=== PATIENT | male | born 1930 | race Native Hawaiian/Other Pacific Islander ===

== ENCOUNTER 2016-07-10 13:08 | Inpatient (IN) | payer MEDICARE, MEDICAID ==
[2016-07-10 13:09] VITALS: BMI 21.2
--- NOTE | 2016-07-10 14:45 | ED PDOC ---
HPI: Altered Mental Status Time Seen by Provider: 07/10/16 13:33 Chief Complaint (Nursing): Altered Mental Status Chief Complaint (Provider): Altered Mental Status History Per: Patient History/Exam Limitations: None Onset/Duration Of Symptoms: Days Current Symptoms Are (Timing): Still Present Additional Complaint(s): 86 y/o male presents to the emergency department accompanied by and nephew with a complaint of increasing anxiety and depression which had been progressing over the last 4 months. Associated with feeling nervous, agitated, and confusion. Patient was told by PCP to visit the ER to get admitted to [facility] with a psychiatric evaluation. As per history from family, patient was seen at [facility] last month for the same complaints and was there for a total of 4 months. Denies fever, headache or fall. Past Medical History Reviewed: Historical Data, Nursing Documentation, Vital Signs Vital Signs: Last Vital Signs Temp 98.1 F 07/10/16 13:13 Pulse 67 07/10/16 13:13 Resp 16 07/10/16 13:13 BP 146/86 07/10/16 13:13 Pulse Ox 98 07/10/16 13:13 - Medical History PMH: Depression, HTN Denies: Chronic Kidney Disease - Surgical History Surgical History: Coronary Stent, Hernia Repair - Family History Family History: States: Unknown Family Hx - Social History Current smoker - smoking cessation education provided: No Ex-Smoker (has not smoked in the last 12 months): Yes Alcohol: None Drugs: Denies - Immunization History Hx Tetanus Toxoid Vaccination: No Hx Influenza Vaccination: Yes Hx Pneumococcal Vaccination: Yes - Home Medications Home Medications: Ambulatory Orders Medication Instructions Recorded Aspirin [Ecotrin] 81 mg PO DAILY 04/07/15 Metoprolol Tartrate 25 mg PO BID 04/07/15 Tamsulosin [Flomax] 0.4 mg PO DAILY 04/07/15 hydrALAZINE [Apresoline] 50 mg PO BID 04/07/15 Esomeprazole Magnesium [Nexium] 40 mg PO DAILY 12/13/15 Atorvastatin [Lipitor] 40 mg PO DAILY 07/10/16 Clopidogrel [Plavix] 75 mg PO DAILY 07/10/16 QUEtiapine [SEROquel] 25 mg PO DIN 07/10/16 Quetiapine Fumarate [Seroquel] 50 mg PO HS 07/10/16 Sodium Chloride [Sodium Chloride 1 gm PO TID 07/10/16 Tab] Zolpidem [Ambien] 5 mg PO HS 07/10/16 - Allergies Allergies/Adverse Reactions: Allergies Allergy/AdvReac Type Severity Reaction Status Date / Time No Known Allergies Allergy Verified 07/10/16 20:14 Review of Systems ROS Statement: Except As Marked, All Systems Reviewed And Found Negative Constitutional: Negative for: Fever, Other (No falls) Neurological: Negative for: Headache Psych: Positive for: Anxiety, Depression, Other (Confused) Physical Exam - Reviewed Nursing Documentation Reviewed: Yes Vital Signs Reviewed: Yes - Physical Exam Appears: Positive for: Non-toxic, No Acute Distress Head Exam: Positive for: ATRAUMATIC, NORMOCEPHALIC ENT: Positive for: Other (Hearing aids bilaterally) Neurologic/Psych: Positive for: Alert, Oriented (x3), Mood/Affect (Confused and anxious) - Laboratory Results Result Diagrams: 07/10/16 14:46 07/10/16 14:46 - ECG O2 Sat by Pulse Oximetry: 98 (RA) Pulse Ox Interpretation: Normal Medical Decision Making Medical Decision Making: Time: 13:33 Initial impression: Anxiety and depression Initial plan: --Head w/o contrast (CT) --Electrocardiogram Stat --Acetaminophen Stat --Alcohol Serum Stat --COMP Metabolic Panel --Drug Screen, Urine Stat --Salicylate Stat --Crisis Evaluation as Ordered --EKG-ED (EDNURTX) Stat --CBC w/ differential --Chest One View (RAD) Stat --Urinalysis Stat --Revaluation Time: 1500 Patient signed out to Dr. Fried pending medical clearance for crisis eval Scribe Attestation: Documented by Ami Alcaraz, acting as a scribe for Garcia Marvin MD. Provider Scribe Attestation: All medical record entries made by the Scribe were at my direction and personally dictated by me. I have reviewed the chart and agree that the record accurately reflects my personal performance of the history, physical exam, medical decision making, and the department course for this patient. I have also personally directed, reviewed, and agree with the discharge instructions and disposition. Disposition - Clinical Impression Clinical Impression: Depression - Patient ED Disposition Is Patient to be Admitted: Transfer of Care - Disposition Disposition: Transfer of Care Disposition Time: 15:00 Condition: STABLE Patient Signed Over To: Ernestina Fried
[2016-07-10 14:55] LABS: BASO # 0.1 K/uL (0.0-0.2); BASO % 1.3 % (0.0-2.0); EOS # 0.2 K/uL (0.0-0.7); EOS % 2.4 % (0.0-4.0); HEMATOCRIT 44.7 % (35.0-51.0); LYMPH # 0.6 K/uL (1.0-4.3); LYMPH % 6.1 % (20.0-40.0); MEAN CELL VOLUME 74.4 fl (80.0-94.0); MEAN CORPUSCULAR HEMOGLOBIN 24.1 pg (27.0-31.0); MEAN CORPUSCULAR HGB CONC 32.4 g/dL (33.0-37.0); MEAN PLATELET VOLUME 7.5 fl (7.2-11.7); MONO # 0.3 K/uL (0.0-0.8); NEUT # 8.8 K/uL (1.8-7.0); NEUT % 87.2 % (50.0-75.0); NRBC % 0.1 % (0.0-0.0); PLATELET COUNT 612 K/uL (130-400); RED CELL DISTRIBUTION WIDTH 16.3 % (11.5-14.5); WHITE BLOOD COUNT 10.1 K/uL (4.8-10.8)
--- NOTE | 2016-07-10 15:13 | CT ---
PROCEDURE: CT HEAD WITHOUT CONTRAST. HISTORY: geropsych COMPARISON: None available. TECHNIQUE: Axial computed tomography images were obtained through the head/brain without intravenous contrast. Radiation dose: Total exam DLP = 1889.36 mGy-cm. This CT exam was performed using one or more of the following dose reduction techniques: Automated exposure control, adjustment of the mA and/or kV according to patient size, and/or use of iterative reconstruction technique. FINDINGS: HEMORRHAGE: No intracranial hemorrhage. BRAIN: Diffuse atrophy with prominence of the ventricles and sulci noted. No mass effect or edema. Intracranial atherosclerotic calcifications. Mild scattered white matter hypodensities, which are nonspecific, but often seen with chronic microvascular ischemic disease. Please note that MRI with diffusion imaging is more sensitive in the detection of acute ischemic event. VENTRICLES: No hydrocephalus. CALVARIUM: Unremarkable. PARANASAL SINUSES: Unremarkable as visualized. No significant inflammatory changes. MASTOID AIR CELLS: Under aeration of the mastoid air cells. OTHER FINDINGS: None. IMPRESSION: Generalized atrophy. Nonspecific white matter changes. Under aeration of the mastoid air cells; correlate clinically for history of mastoiditis.
[2016-07-10 15:21] LABS: ALB/GLOB RATIO 1.7 (1.0-2.1); ALCOHOL SERUM < 10 mg/dl (0-10); ALKALINE PHOSPHATASE 84 U/L (38-126); ALT/SGPT 37 U/L (21-72); AST/SGOT 87 U/L (17-59); BLOOD UREA NITROGEN 16 mg/dl (9-20); CALCIUM 9.6 mg/dL (8.4-10.2); CARBON DIOXIDE 25 mmol/L (22-30); CHLORIDE 96 mmol/L (98-107); GFR AFRICAN-AMERICAN > 60; GLUCOSE,RANDOM 77 mg/dL (75-110); POTASSIUM 5.2 MMOL/L (3.6-5.0); SODIUM 132 mmol/l (132-148); TOTAL PROTEIN 7.6 G/DL (6.3-8.2)
--- NOTE | 2016-07-10 15:45 | RAD ---
HISTORY: psych COMPARISON: None available TECHNIQUE: Chest, one view. FINDINGS: LUNGS: No focal consolidation. Please note that chest x-ray has limited sensitivity for the detection of pulmonary masses. PLEURA: No significant pleural effusion identified. No definite pneumothorax . CARDIOVASCULAR: Cardiomegaly. Aortic stent. Dense atherosclerotic calcification of the aorta. OSSEOUS STRUCTURES: Mild degenerative changes. VISUALIZED UPPER ABDOMEN: Unremarkable. OTHER FINDINGS: None. IMPRESSION: Cardiomegaly.
--- NOTE | 2016-07-10 15:45 | ED PDOC ---
- Laboratory Results Result Diagrams: 07/10/16 14:46 07/10/16 14:46 - ECG ECG: Positive for: Interpreted By Me ECG Rhythm: Positive for: Normal QRS, Sinus Rhythm, ST/T Changes (lateral T wave inversions) O2 Sat by Pulse Oximetry: 98 (RA) Pulse Ox Interpretation: Normal - Progress ED Course And Treament: 3p Rec'd endorsement from Dr Marvin. Pt with increasing confusion and aggression. H/o inpatient psych admission at [facility]. Pending medical clearance. Accession No. : [id number] Patient Name / ID : RAY ZELAYA / [id number] Exam Date : 07/10/2016 14:48:45 ( Approved ) Study Comment : Sex / Age : M / 86Y Creator : Elissa Obregon MD Dictator : Elissa Obregon MD Improvement Auditor : Brineyard Supervisor : Elissa Obregon MD Approver2 : Report Date : 07/10/2016 15:11:01 My Comment : PROCEDURE: CT HEAD WITHOUT CONTRAST. HISTORY: geropsych COMPARISON: None available. TECHNIQUE: Axial computed tomography images were obtained through the head/brain without intravenous contrast. Radiation dose: Total exam DLP = 1889.36 mGy-cm. This CT exam was performed using one or more of the following dose reduction techniques: Automated exposure control, adjustment of the mA and/or kV according to patient size, and/or use of iterative reconstruction technique. FINDINGS: HEMORRHAGE: No intracranial hemorrhage. BRAIN: Diffuse atrophy with prominence of the ventricles and sulci noted. No mass effect or edema. Intracranial atherosclerotic calcifications. Mild scattered white matter hypodensities, which are nonspecific, but often seen with chronic microvascular ischemic disease. Please note that MRI with diffusion imaging is more sensitive in the detection of acute ischemic event. VENTRICLES: No hydrocephalus. CALVARIUM: Unremarkable. PARANASAL SINUSES: Unremarkable as visualized. No significant inflammatory changes. MASTOID AIR CELLS: Under aeration of the mastoid air cells. OTHER FINDINGS: None. IMPRESSION: Generalized atrophy. Nonspecific white matter changes. Under aeration of the mastoid air cells; correlate clinically for history of mastoiditis. Pt medically stable for psychiatric admission. CW evaluated pt and to be admitted to [facility]. Disposition - Clinical Impression Clinical Impression: Depression - POA Present On Arrival: None - Disposition Disposition: Admitted as In-Patient Disposition Time: 17:00 Condition: STABLE
[2016-07-10 15:57] LABS: BASOPHIL 2 % (0-2); NEUTROPHIL 87 % (42-75); TOTAL CELLS COUNTED 100
[2016-07-10 15:58] LABS: LARGE PLATELETS PRESENT
[2016-07-10] MEDS ORDERED: Alum-Mag Hydrox-Simethicone Susp (30 mL) PO PRN (20:47)
[2016-07-10] MEDS ORDERED: Magnesium Hydroxide Susp 30 ml UD PO PRN (20:47)
[2016-07-10] MEDS ORDERED: Bismuth Subsalicylate 262 mg/15 ml Sus (240 ml) PO PRN (20:47)
[2016-07-10] MEDS ORDERED: Sod Polystyrene Sulf 15 gm/60 ml Oral Susp PO ONE (21:43)
--- NOTE | 2016-07-10 21:45 | CP.PCM.CON ---
History of Present Illness - History of Present Illness History of Present Illness: CC: PER HOSPITAL PROTOCOL HPI: 84M PMH CAD with PCI, Severe s/p TAVR, HTN, HLD, OA, BPH with hx prostate sx admitted to [facility] for increasing confusion and agitation. Patient was brought in by and son, per records. Patient is a poor historian , history mostly obtained from chart review. Patient has had prior psych admission to [facility] and was admitted for appx 4 months. No other complaints at this time, no acute distress. Vitals are stable. ROS: per HPI, all other systems reviewed and neg by in PMSH: CAD with PCI, Severe s/p TAVR, HTN, HLD, OA, BPH with hx prostate sx Family Hx: denies Social Hx: Patient denies any alcohol or smoking, lives with Allergy no known drug allergy Temp Pulse Resp BP Pulse Ox 98.1 F 67 20 146/86 98 07/10/16 13:13 07/10/16 13:13 07/10/16 21:03 07/10/16 13:13 07/10/16 18:26 GEN: awake, alert HEENT NCAT PERRL, neck supple Heart: RRR S1S2 Lung: CTAB, no wheezing or rales noted Abdomen soft and no organomegaly, No mass appreciated Extremities no pedal edema, no leg swelling, pedal pulses are good. [employer] alert awake oriented x3 no functional neurological deficit Skin warm dry Psych confused 07/10/16 14:46 07/10/16 14:46 Active Medications Acetaminophen [Tylenol 325mg tab] 650 mg PO Q4 PRN Aluminum Hydroxide/Magnesium [Maalox Plus 30 ml] 30 ml PO Q4 PRN Bismuth Subsalicylate [Pepto-Bismol] 524 mg PO Q4 PRN LORazepam [Ativan] 0.5 mg PO HS PRN LORazepam [Ativan] 0.5 mg PO Q6 PRN Magnesium Hydroxide [Milk Of Magnesia] 30 ml PO HS PRN QUEtiapine [SEROquel] 50 mg PO HS Aspirin [Ecotrin] 81 mg PO DAILY Atorvastatin [Lipitor] 40 mg PO DAILY Clopidogrel [Plavix] 75 mg PO DAILY Metoprolol Tartrate [Lopressor] 25 mg PO BID Tamsulosin [Flomax] 0.4 mg PO DAILY hydrALAZINE [Apresoline] 50 mg PO BID QUEtiapine [SEROquel] 25 mg PO DIN Assessment/Plan: 84M PMH CAD with PCI, Severe s/p TAVR, HTN, HLD, OA, BPH with hx prostate sx admitted to [facility] for increasing confusion and agitation. Patient was brought in by and son, per records. Patient is a poor historian, history mostly obtained from chart review. Patient has had prior psych admission to [facility] and was admitted for appx 4 months. No other complaints at this time, no acute distress. Vitals are stable. Severe , CAD with PCI, HTN, HLD cont ASA, Plavix, Lopressor, statin BPH cont flomax Agitation per psychiatric team Past Patient History - Past Medical History & Family History Past Medical History?: Yes - Past Social History Alcohol: None Drugs: Denies - CARDIAC Hx Cardiac Disorders: No Hx Hypertension: Yes - PULMONARY Hx Tuberculosis: No - NEUROLOGICAL HX Cerebrovascular Accident: No Hx Seizures: No - HEENT Other/Comment: [place] (Bilateral) - RENAL Hx Chronic Kidney Disease: No - ENDOCRINE/METABOLIC Hx Endocrine Disorders: No - HEMATOLOGICAL/ONCOLOGICAL Hx Cancer: No Hx Human Immunodeficiency Virus (HIV): No - INTEGUMENTARY Hx Dermatological Problems: No - MUSCULOSKELETAL/RHEUMATOLOGICAL Hx Falls: Yes Hx Unsteady Gait: Yes (post surgery of aortic valve, with use of cane) - GASTROINTESTINAL Hx Constipation: Yes Hx Diarrhea: Yes Other/Comment: abdominal hernia - GENITOURINARY/GYNECOLOGICAL Hx Sexually Transmitted Disorders: No - PSYCHIATRIC Hx Anxiety: Yes Hx Depression: Yes - SURGICAL HISTORY Hx Coronary Stent: Yes Hx Valve Replacement: Yes - ANESTHESIA Hx Anesthesia: Yes Hx Anesthesia Reactions: No Hx Malignant Hyperthermia: No Meds Allergies/Adverse Reactions: Allergies Allergy/AdvReac Type Severity Reaction Status Date / Time No Known Allergies Allergy Verified 07/10/16 20:14 - Medications Medications: Current Medications Acetaminophen (Tylenol 325mg Tab) 650 mg PO Q4 PRN PRN Reason: Pain, moderate (4-7) Al Hydrox/Mg Hydrox/Simethicone (Maalox Plus 30 Ml) 30 ml PO Q4 PRN PRN Reason: Dyspepsia Aspirin (Ecotrin) 81 mg PO DAILY [facility] Atorvastatin Calcium (Lipitor) 40 mg PO ONCE ONE Stop: 07/11/16 21:31 Atorvastatin Calcium (Lipitor) 40 mg PO DAILY [facility] Bismuth Subsalicylate (Pepto-Bismol) 524 mg PO Q4 PRN PRN Reason: Diarrhea Clopidogrel Bisulfate (Plavix) 75 mg PO DAILY [facility] Hydralazine HCl (Apresoline) 50 mg PO BID [facility] Lorazepam (Ativan) 0.5 mg PO HS PRN PRN Reason: Insomnia Stop: 07/24/16 20:48 Lorazepam (Ativan) 0.5 mg PO Q6 PRN PRN Reason: Anixety/Agitation Stop: 07/24/16 20:48 Magnesium Hydroxide (Milk Of Magnesia) 30 ml PO HS PRN PRN Reason: Constipation Metoprolol Tartrate (Lopressor) 25 mg PO BID [facility] Quetiapine Fumarate (Seroquel) 25 mg PO DIN [facility] Quetiapine Fumarate (Seroquel) 50 mg PO HS [facility] Sodium Polystyrene Sulfonate (Kayexalate Oral Susp) 30 gm PO ONCE ONE Stop: 07/10/16 21:44 Tamsulosin HCl (Flomax) 0.4 mg PO ONCE ONE Stop: 07/11/16 21:31 Tamsulosin HCl (Flomax) 0.4 mg PO DAILY [facility] Results - Vital Signs Recent Vital Signs: Last Vital Signs Temp 98.1 F 07/10/16 13:13 Pulse 67 07/10/16 13:13 Resp 20 07/10/16 21:03 BP 146/86 07/10/16 13:13 Pulse Ox 98 07/10/16 18:26 - Labs Result Diagrams: 07/10/16 14:46 07/10/16 14:46
[2016-07-11 06:20] LABS: RBC URINE 1 /hpf (0-3); URINE BILIRUBIN NEGATIVE (NEGATIVE); URINE BLOOD NEGATIVE (NEGATIVE); URINE COLOR YELLOW (YELLOW); URINE GLUCOSE (UA) NEG (Normal); URINE KETONE NEGATIVE (NEGATIVE); URINE LEUKOCYTE ESTERASE SMALL Leu/uL (Negative); URINE PROTEIN 100 mg/dL (NEGATIVE); URINE UROBILINOGEN 0.2-1.0 mg/dL (0.2-1.0); WBC URINE 11 /hpf (0-5)
[2016-07-11 07:49] LABS: CHOLESTEROL 129 mg/dL (0-199)
[2016-07-11 08:04] LABS: T4 9.74 ug/dl (5.5-11.0)
[2016-07-11 08:18] LABS: THYROID STIMULATING HORMONE 2.46 mIU/ML (0.46-4.68)
--- NOTE | 2016-07-11 08:33 | PCM.PSYCH ---
Initial Psychiatric Evaluation - Initial Psychiatric Evaluation Type of Admission: Voluntary Legal Status: Capacity Chief Complaint (in patient's own words): "I don't sleep well." Patient's Reaction to Hospitalization: 86 year old male brought to this ED by his family. Patient believe he is having a "nervous breakdown" stating that he feels sad, but denied feeling "depressed." (He did not seem to identify with the specific word, depression). +Intermittent feelings of anxiety. Pt reports he has "insomnia" and despite many medications, nothing is working for him. Pt reports that he feels that his legs don't work and he feels numbness. Pt states that as a child in school, he overworked his brain and developed insomnia. Pt is tangential and requires frequent redirection. He will not elaborate on responses in regards to questions asked by this junior underwriter but he continues to speak about the insomnia. Pt is oriented x3. Pt denies suicial/homicidal ideations. Pt denies a/v/h. Collateral obtained by home support worker: As per Pts nephew Sarina Markham, , approximately 4 months ago Pt began reporting insomnia, pain and numbness. They took Pt to [facility] where he stayed one day for observation and was d /c with Trazadone. He reports that 3-4 days after taking Trazadone, Pt became forgetful. They took him back to [facility] where Pt was told he had low sodium and stated that it could have been contributing to his forgetfulness. Pt was then linked to Dr. Browne which discontinued Trazadone and put him on Remeron 30mg and Xanax 2mg. As per nephew, Pt continued to complain about insomnia and his nurse practitioner discontinued his medication and started him on Seroquel 75mg (25mg in the AM and 50mg in the PM) and Ambien. Pts daughter Nkiki Markham stated that Pt has been "rambling" all day and becomes agitated at times and started yelling. She would like for him to be admitted to be stabilized and receive a full evaluation. She reports [facility] told her it may be Dementia but she is unsure of this dx and would like a confirmation. She reports his psychiatrist dx him with Depression and Anxiety. PPHx: Pt has been to [facility], however, he only stayed one day. Pt was treated by Dr. Browne and now he is unsure of his new psychiatrist. Pt is dx with Depression and Anxiety. Currently on Seroquel 75mg and Ambien. PMHx: CAD with PCI, Severe s/p TAVR, HTN, HLD, OA, BPH with hx prostate sx Family Hx: denies family h/o mental illness. Social Hx: Patient denies any alcohol or smoking, lives with Allergy: NKDA Current Medications: Active Medications Generic Name Dose Route Start Last Admin Trade Name Freq PRN Reason Stop Dose Admin Acetaminophen 650 mg 07/10/16 20:47 07/10/16 22:32 Tylenol 325mg Tab PO 650 mg Q4 PRN Administration Pain, moderate (4-7) Al Hydrox/Mg Hydrox/Simethicone 30 ml 07/10/16 20:47 Maalox Plus 30 Ml PO Q4 PRN Dyspepsia Aspirin 81 mg 07/11/16 09:00 Ecotrin PO DAILY [facility] Atorvastatin Calcium 40 mg 07/11/16 09:00 Lipitor PO DAILY [facility] Bismuth Subsalicylate 524 mg 07/10/16 20:47 Pepto-Bismol PO Q4 PRN Diarrhea Clopidogrel Bisulfate 75 mg 07/11/16 09:00 Plavix PO DAILY [facility] Home Med 40 mg 07/11/16 09:00 Esomeprazole Magnesium [Nexium] PO DAILY [facility] Hydralazine HCl 50 mg 07/11/16 09:00 Apresoline PO BID [facility] Lorazepam 0.5 mg 07/10/16 20:47 Ativan PO 07/24/16 20:48 HS PRN Insomnia Lorazepam 0.5 mg 07/10/16 20:47 Ativan PO 07/24/16 20:48 Q6 PRN Anixety/Agitation Magnesium Hydroxide 30 ml 07/10/16 20:47 Milk Of Magnesia PO HS PRN Constipation Metoprolol Tartrate 25 mg 07/11/16 09:00 Lopressor PO BID [facility] Quetiapine Fumarate 25 mg 07/11/16 17:00 Seroquel PO DIN [facility] Quetiapine Fumarate 50 mg 07/10/16 22:00 07/10/16 22:12 Seroquel PO 50 mg HS [facility] Administration Tamsulosin HCl 0.4 mg 07/11/16 09:00 Flomax PO DAILY [facility] Past Psychiatric History - Past Psychiatric History Previous Treatment History: Inpatient Pertinent Medical Hx (Current Medical&Sleep Prob, Allergies): Allergies Allergy/AdvReac Type Severity Reaction Status Date / Time No Known Allergies Allergy Verified 07/10/16 20:14 Aspirin [Ecotrin] 81 mg PO DAILY 04/07/15 Metoprolol Tartrate 25 mg PO BID 04/07/15 Tamsulosin [Flomax] 0.4 mg PO DAILY 04/07/15 hydrALAZINE [Apresoline] 50 mg PO BID 04/07/15 Esomeprazole Magnesium [Nexium] 40 mg PO DAILY 12/13/15 Atorvastatin [Lipitor] 40 mg PO DAILY 07/10/16 Clopidogrel [Plavix] 75 mg PO DAILY 07/10/16 QUEtiapine [SEROquel] 25 mg PO DIN 07/10/16 Quetiapine Fumarate [Seroquel] 50 mg PO HS 07/10/16 Sodium Chloride [Sodium Chloride Tab] 1 gm PO TID 07/10/16 Zolpidem [Ambien] 5 mg PO HS 07/10/16 Review of Systems - Psychiatric Psychiatric: Abnormal Sleep Pattern, Depression, Irritability, Mood Swings Mental Status Examination - Personal Presentation Personal Presentation: Looks stated age - Affect Affect: Broad - Motor Activity Motor Activity: Psychomotor Agitation - Reliability in Providing Information Reliability in Providing Information: Poor, due to cognitve impairment - Speech Speech: Tangential - Mood Mood: Depressed - Formal Thought Process Formal Thought Process: Loosening of associations - Obsessions/Compulsions Obsessions: No Compulsions: No - Cognitive Functions Orientation: Person, Place, Situation, Time Sensorium: Alert Judgement: Intact, as evidence by: Other Memory: Recent impaired, as evidenced by: Other (Patient is a poor historian at times, he is more focused on making demands than providing information) - Risk Risk: Diminished functioning - Strength & Assets Inventory Strength & Assets Inventory: Family support - Limitations Limitations: Decreased memory, recent DSM 5 DX - DSM 5 DSM 5 Diagnosis: Depressive Disorder, r/o Dementia w/ behavioral disturbances - Recommended/Plan of Treatment Treatment Recommendations and Plan of Treatment: -Admit to [facility] -Medicine consult -Increase Seroquel to 100 mg PO HS -Collateral history -Disposition planning Projected ELOS: 3-5 days Discharge Plan and Discharge Criteria: Discharge when psychiatrically stable - Smoking Cessation Smoking Cessation Initiated: No Reason for not providing: Not indicated
[2016-07-11 11:51] VITALS: O2SAT 98
[2016-07-11 12:00] LABS: CHLORIDE 95 mmol/L (98-107); SODIUM 133 mmol/l (132-148)
[2016-07-11 12:03] LABS: GFR AFRICAN-AMERICAN > 60
[2016-07-11 12:04] LABS: BLOOD UREA NITROGEN 16 mg/dl (9-20); CALCIUM 9.9 mg/dL (8.4-10.2); CARBON DIOXIDE 25 mmol/L (22-30); GLUCOSE,RANDOM 80 mg/dL (75-110)
[2016-07-11 12:09] LABS: POTASSIUM 4.7 MMOL/L (3.6-5.0)
[2016-07-11 17:54] LABS: FOLATE > 20.0 ng/mL
--- NOTE | 2016-07-12 13:34 | PCM.PYCHPN ---
Psychiatric Progress Note - Psychiatric Progress Note Patient seen today, length of contact: Patient evaluated, case discussed with team Patient Chief Complaint: "I don't sleep well." Problems Identified/Issues Discussed: Patient continues to report significant anxiety. He is very demanding towards staff, making various requests including specific food items and how his room should be organized. Doll Wig Maker spoke with the patient's daughter and explained the current treatment plan, including the risks/benefits of tx with Seroquel. Medication Change: Yes (Increase Seroquel to 50 mg PO Daily@1700/ 100 mg PO HS) Medical Record Reviewed: Yes Mental Status Examination - Cognitive Function Orientation: Person, Place, Situation, Time Memory: Impaired Attention: Poor Association: Loose Decription of patient's judgement and insights: Poor insight/ fair judgment - Mood Mood: Depressed, Anxious - Affect Affect: Constricted - Speech Speech: Appropriate - Formal Thought Process Formal Thought Process: Loosening of associations Psychotic Thoughts and Behaviors: NO AH/VH/paranoia - Suicidal Ideation Suicidal Ideation: No - Homicidal Ideation Homicidal Ideation: No Goal/Treatment Plan - Goal/Treatment Plan Need for Continued Stay: Remain at risks for inpatient hospitalization, Severe depression anxiety, Discharge may exacerbated symptoms Progress Toward Problem(s) and Goals/Treatment Plan: 86 yo male presents with symptoms of depression, anxiety, worsening memory and is increasingly difficult at home. Patient likely has a depressive disorder, generalized anxiety and dementia with behavioral disturbances. -Increase Seroquel to 50 mg PO Daily@1700/ 100 mg PO HS -Case discussed with patient's daughter Estimated Date of D/C: 07/14/16 - Smoking Cessation Smoking Cessation Initiated: No Reason for not providing: Not indicated
--- NOTE | 2016-07-13 12:32 | PCM.PYCHPN ---
Psychiatric Progress Note - Psychiatric Progress Note Patient seen today, length of contact: Patient evaluated, case discussed with team, chart reviewed Patient Chief Complaint: "I'm constipated" Problems Identified/Issues Discussed: Patient has various somatic complaints, including constipation. He perseverates on his complaints and will only talk about topics that he is willing to engage in. His sleep has improved and he slept 7 hours last night. He continues to report anxiety. He is requesting to be discharged and we discussed that he will be discharged tomorrow. We also discussed starting an antidepressant for his continued anxiety and depressive symptoms. Medication Change: Yes (Start Zoloft 50 mg PO Daily) Medical Record Reviewed: Yes Mental Status Examination - Cognitive Function Orientation: Person, Place, Situation, Time Memory: Impaired Attention: Poor Concentration: Poor Association: Loose - Mood Mood: Anxious - Affect Affect: Broad - Speech Speech: Appropriate - Formal Thought Process Formal Thought Process: Loosening of associations Psychotic Thoughts and Behaviors: NO AH/VH/paranoia, +Various somatic preoccupations - Suicidal Ideation Suicidal Ideation: No - Homicidal Ideation Homicidal Ideation: No Goal/Treatment Plan - Goal/Treatment Plan Need for Continued Stay: Severe depression anxiety, Discharge may exacerbated symptoms Progress Toward Problem(s) and Goals/Treatment Plan: 86 yo male presents with symptoms of depression, anxiety, worsening memory and is increasingly difficult at home. Patient likely has a depressive disorder, generalized anxiety and dementia with behavioral disturbances. -Continue Seroquel 50 mg PO Daily@1700/ 100 mg PO HS -Start Zoloft 50 mg PO Daily -Discharge to home tomorrow under the care of his Estimated Date of D/C: 07/14/16
[2016-07-14 06:01] VITALS: BP 161/85; PULSE 90; RESP 20; TEMP 97.1
--- NOTE | 2016-07-14 09:36 | PCM.PYCHDC ---
Mental Status Examination - Mental Status Examination Orientation: Person, Place, Time Memory: Impaired Mood: Anxious Affect: Broad Speech: Appropriate Attention: Poor Association: Loose Formal Thought Process: Loosening of associations Description of patient's judgement and insight: Poor insight/ fair judgment Psychotic Thoughts and Behaviors: NO AH/VH/paranoia, +Various somatic preoccupations Suicidal Ideation: No Current Homicidal Ideation?: No Discharge Summary - Discharge Note Reason for Hospitalization: 86 year old male brought to this ED by his family. Patient believe he is having a "nervous breakdown" stating that he feels sad, but denied feeling "depressed." (He did not seem to identify with the specific word, depression). +Intermittent feelings of anxiety. Pt reports he has "insomnia" and despite many medications, nothing is working for him. Pt reports that he feels that his legs don't work and he feels numbness. Pt states that as a child in school, he overworked his brain and developed insomnia. Pt is tangential and requires frequent redirection. He will not elaborate on responses in regards to questions asked by this card writer hand but he continues to speak about the insomnia. Pt is oriented x3. Pt denies suicial/homicidal ideations. Pt denies a/v/h. Collateral obtained by ball worker: As per Pts nephew Sarina Markham, [phone], approximately 4 months ago Pt began reporting insomnia, pain and numbness. They took Pt to [facility] where he stayed one day for observation and was d /c with Trazadone. He reports that 3-4 days after taking Trazadone, Pt became forgetful. They took him back to [facility] where Pt was told he had low sodium and stated that it could have been contributing to his forgetfulness. Pt was then linked to Dr. Browne which discontinued Trazadone and put him on Remeron 30mg and Xanax 2mg. As per nephew, Pt continued to complain about insomnia and his nurse practitioner discontinued his medication and started him on Seroquel 75mg (25mg in the AM and 50mg in the PM) and Ambien. Pts daughter Nikki Markham stated that Pt has been "rambling" all day and becomes agitated at times and started yelling. She would like for him to be admitted to be stabilized and receive a full evaluation. She reports [facility] told her it may be Dementia but she is unsure of this dx and would like a confirmation. She reports his psychiatrist dx him with Depression and Anxiety. PPHx: Pt has been to [facility], however, he only stayed one day. Pt was treated by Dr. Browne and now he is unsure of his new psychiatrist. Pt is dx with Depression and Anxiety. Currently on Seroquel 75mg and Ambien. PMHx: CAD with PCI, Severe s/p TAVR, HTN, HLD, OA, BPH with hx prostate sx Family Hx: denies family h/o mental illness. Social Hx: Patient denies any alcohol or smoking, lives with Allergy: NKDA Consultations:: List each consultation separately and include: 1. Reason for request. 2. Findings. 3. Follow-up Consultations: Medicine consult Summary of Hospital Course include:: 1. Description of specific treatment plan utilized for patients during their course of treatmen. 2. Summarize the time- course for resolution of acute symptoms and/or regressed behaviors. 3. Describe issues identified and worked on during hospitalization. 4. Describe medication utilized. 5. Describe medical problems identified and treated. 6. Reassessment of suicide risk Summary of Hospital Course: Patient admitted the hospital and was stabilized on Seroquel 50 mg PO Daily@1700 / 100 mg PO HS and Zoloft 50 mg PO AM. Individual and group therapy provided. Patient has improved symptoms since admission. He is psychiatrically stable for discharge and would benefit from outpatient follow-up. - Final Diagnosis (DSM 5) Condition upon Discharge: STABLE DSM 5: Depressive Disorder, Generalized Anxiety Disorder, r/o Dementia w/ behavioral disturbances Disposition: HOME/ ROUTINE Follow-up Treatment Plan: 86 yo male presents with symptoms of depression, anxiety, worsening memory and is increasingly difficult at home. Patient has a depressive disorder, generalized anxiety and likely dementia with behavioral disturbances. -Continue Seroquel 50 mg PO Daily@1700/ 100 mg PO HS -Start Zoloft 50 mg PO Daily -Discharge to home under the care of his -Recommend outpatient psychiatry follow-up Prescriptions/Medication Reconciliation: QUEtiapine [Seroquel] 100 mg PO HS #30 tab QUEtiapine [SEROquel] 50 mg PO DAILY@1700 #30 tab Sertraline [Zoloft] 50 mg PO DAILY #30 tab - Smoking Cessation Smoking Cessation Medication prescribed: No Reason for not providing: Not indicated - Antipsychotic Medications Pt discharged on 2 or more routine antipsychotic medications: No
--- NOTE | 2016-07-14 11:10 | CP.PCM.CON ---
History of Present Illness - History of Present Illness History of Present Illness: Pt is an 86 year old male admitted to [facility] (formerly [facility]) and referred to the production underwriter for cognitive testing. Pt was focused on his anxiety/depression on interview requesting help repeatedly for the above. Portions of the Dementia Rating Scale were administered with portions deleted due to patients severe hearing deficits. Pt scored within normal limits on Attention, Construction and Conceptualization tasks. Visual memory skills also fell within Normal limits. Verbal memory was not assessed due to hearing loss though patient was oriented to year, month, day and date. He was able to specify where he resides, years marrired, number of children and grandchildren. Testing did not reveal significant cognitive deficits. Past Patient History - Past Medical History & Family History Past Medical History?: Yes - Past Social History Alcohol: None Drugs: Denies - CARDIAC Hx Hypertension: Yes - PULMONARY Hx Tuberculosis: No - NEUROLOGICAL HX Cerebrovascular Accident: No Hx Seizures: No - HEENT Other/Comment: [place] (Bilateral) - RENAL Hx Chronic Kidney Disease: No - ENDOCRINE/METABOLIC Hx Endocrine Disorders: No - HEMATOLOGICAL/ONCOLOGICAL Hx Cancer: No Hx Human Immunodeficiency Virus (HIV): No - INTEGUMENTARY Hx Dermatological Problems: No - MUSCULOSKELETAL/RHEUMATOLOGICAL Hx Falls: Yes Hx Unsteady Gait: Yes (post surgery of aortic valve, with use of cane) - GASTROINTESTINAL Hx Constipation: Yes Hx Diarrhea: Yes Other/Comment: abdominal hernia - GENITOURINARY/GYNECOLOGICAL Hx Sexually Transmitted Disorders: No - PSYCHIATRIC Hx Depression: Yes - SURGICAL HISTORY Hx Coronary Stent: Yes - ANESTHESIA Hx Anesthesia: Yes Hx Anesthesia Reactions: No Hx Malignant Hyperthermia: No Meds Home Medications: Home Medication List Medication Instructions Recorded Confirmed Type QUEtiapine [SEROquel] 50 mg PO DAILY@1700 #30 tab 07/13/16 Rx QUEtiapine [Seroquel] 100 mg PO HS #30 tab 07/13/16 Rx Sertraline [Zoloft] 50 mg PO DAILY #30 tab 07/13/16 Rx Allergies/Adverse Reactions: Allergies Allergy/AdvReac Type Severity Reaction Status Date / Time No Known Allergies Allergy Verified 07/10/16 20:14 - Medications Medications: Current Medications Aspirin (Ecotrin) 81 mg PO DAILY [facility] Last Admin: 07/14/16 08:36 Dose: 81 mg Atorvastatin Calcium (Lipitor) 40 mg PO DAILY [facility] Last Admin: 07/14/16 08:38 Dose: 40 mg Clopidogrel Bisulfate (Plavix) 75 mg PO DAILY [facility] Last Admin: 07/14/16 08:36 Dose: 75 mg Home Med (Esomeprazole Magnesium [Nexium]) 40 mg PO DAILY@0700 [facility] Last Admin: 07/14/16 08:35 Dose: 40 mg Hydralazine HCl (Apresoline) 50 mg PO BID [facility] Last Admin: 07/14/16 08:39 Dose: 50 mg Metoprolol Tartrate (Lopressor) 25 mg PO BID [facility] Last Admin: 07/14/16 08:39 Dose: 25 mg Quetiapine Fumarate (Seroquel) 100 mg PO HS [facility] Last Admin: 07/13/16 21:01 Dose: 100 mg Quetiapine Fumarate (Seroquel) 50 mg PO DAILY@1700 [facility] Last Admin: 07/13/16 17:28 Dose: 50 mg Sertraline HCl (Zoloft) 50 mg PO DAILY [facility] Last Admin: 07/14/16 08:36 Dose: 50 mg Tamsulosin HCl (Flomax) 0.4 mg PO DAILY [facility] Last Admin: 07/14/16 08:38 Dose: 0.4 mg Results - Vital Signs Recent Vital Signs: Last Vital Signs Temp 97.1 F L 07/14/16 06:00 Pulse 90 07/14/16 08:39 Resp 20 07/14/16 06:00 BP 161/85 H 07/14/16 08:39 Pulse Ox 98 07/11/16 11:51 - Labs Result Diagrams: 07/10/16 14:46 07/11/16 06:00
--- NOTE | 2016-07-14 19:17 | CARD ---
APPROVED REPORT EKG Measurement Heart [id number] <Conclusion> Sinus rhythm with 1st degree AV block T wave abnormality, consider lateral ischemia Abnormal ECG
== END 2016-07-14 14:00 | disposition home or self-care (01) | DRG 881 ==
LOC: H.ER 13:08 → UNDOADMIN 17:47 → H.ERHOLD 17:47 → H.STEP 19:15
PROVIDERS: ADMIT Psychiatry & Neurology Psychiatry; ATTEND Psychiatry & Neurology Psychiatry
DX: F32.9 Major depressive disorder, single episode, unspecified (principal); F03.91 Unspecified dementia, unspecified severity, with behavioral disturbance; I10 Essential (primary) hypertension; I25.10 Atherosclerotic heart disease of native coronary artery without angina pectoris; N40.0 Benign prostatic hyperplasia without lower urinary tract symptoms; G47.00 Insomnia, unspecified; E78.5 Hyperlipidemia, unspecified; K59.00 Constipation, unspecified; F41.1 Generalized anxiety disorder; Z95.2 Presence of prosthetic heart valve